=== PATIENT | female | born 1965 | race Caucasian/White ===

== ENCOUNTER → 2016-06-07 | Outpatient (CLI) | payer OTHER | END | disposition home or self-care (01) | LOC: PF 07:43 | PROVIDERS: ATTEND Surgery | DX: J44.9 Chronic obstructive pulmonary disease, unspecified (principal) | CPT/HCPCS: 94060 ==

== ENCOUNTER → 2016-08-18 | Outpatient (CLI) | payer OTHER ==
--- NOTE | 2016-08-18 15:25 | KCIC ---
PROCEDURE [facility]. HISTORY COPD exacerbation. Wheezing. This has been increasing over the past 6 months. Smoker. COMPARISON None at this facility. FINDINGS There is a nodule of the mid aspect measuring 13 millimeters. Nipple shadows project over both lung bases. Bilateral bronchitis is seen which may be acute or chronic in nature. Hyperinflation is seen consistent with COPD. No consolidative pneumonia is seen. No pleural effusion or pneumothorax is evident. The heart size, pulmonary vasculature, mediastinum and both genet are unremarkable. The osseous structures appear intact. IMPRESSION COPD. 13 millimeter lung nodule. Recommend comparison to any previous outside chest x-rays. If there are none available, then recommend a chest CT with IV contrast for further evaluation. Bilateral bronchitis. No consolidative pneumonia. Electronically signed by: Julio Benjamin MD (Aug 18, 2016 15:23:38)
== END | disposition home or self-care (01) ==
LOC: KCIC 12:23
PROVIDERS: ATTEND Nurse Practitioner Family
DX: J44.1 Chronic obstructive pulmonary disease with (acute) exacerbation (principal); R06.2 Wheezing; Z87.891 Personal history of nicotine dependence
CPT/HCPCS: 71020

== ENCOUNTER → 2016-08-30 | Outpatient (CLI) | payer OTHER ==
--- NOTE | 2016-08-30 10:58 | KCIC ---
PROCEDURE Chest CT without contrast. HISTORY Lung nodule, smoker for 38 years a 1 [id number], cough, shortness of air, COPD TECHNIQUE Noncontrast CT imaging was performed of the chest, multiplanar reconstruction images submitted. Exposure: One or more of the following individualized dose reduction techniques were utilized for this exam: 1. Automated exposure control. 2. Adjustment of the mA and/or kV according to patient size. 3. Use of iterative reconstruction technique. COMPARISON None other than chest radiograph August 18, 2016 FINDINGS Nodular opacity on chest radiograph corresponds with partially calcified nodule of the left upper lobe up to 1.2 cm transverse. There is small 0.3 cm right lower lobe nodule axial image 65 series 3. Slightly spiculated right upper lobe noncalcified nodule axial image 21 measures up to 0.6 centimeters. There is tiny right upper lobe nodule axial image 55 on the order of 0.2 cm. There is tiny 0.2 cm subpleural left lower lobe nodule axial image 54. There is no abnormal pericardial or pleural fluid, pneumothorax, lobar infiltrate. No significantly enlarged lymph nodes are identified of the chest. Largest pretracheal node measures 0.5 cm short axis dimension. There is somewhat hypodense left thyroid nodule estimated at 1.1 cm. There is some scattered atherosclerotic calcification of the normal caliber abdominal aorta. There is moderate to severe centrilobular emphysema. IMPRESSION 1. Radiographic findings correspond with partially calcified left upper lobe nodule. There are some other smaller noncalcified nodules including somewhat spiculated 0.6 centimeter right upper lobe nodule for which follow-up in 6-12 months is recommended. 2. There is centrilobular emphysema. 3. There is approximate 1.1 cm left thyroid nodule better characterized by ultrasound. Electronically signed by: Hung Randall MD (Aug 30, 2016 10:56:39)
== END | disposition home or self-care (01) ==
LOC: KCIC CT 10:06
PROVIDERS: ATTEND Internal Medicine Pulmonary Disease
DX: R91.1 Solitary pulmonary nodule (principal)
CPT/HCPCS: 71250

== ENCOUNTER 2018-01-22 12:14 | Inpatient (IN) | payer OTHER ==
[~2018-01-22] VITALS: Ht 154.9 cm; Wt 57.2 kg
--- NOTE | 2018-01-22 12:52 | PHYS DOC ---
Past Medical History Past Medical History: COPD Smoking: Cigarettes, 1 Pack Per Day Drug Use: None Adult General Chief Complaint Chief Complaint: RAPID HEART RATE HPI HPI Patient is a 52-year-old female who presents to the emergency department for evaluation. She states that on Monday, she felt her heart beating fast, and she checked her blood pressure and her heart rate was over 200. She states that her she would not really her blood pressure. She states she was having "heartburn" for a few hours on Monday, and she took some aspirin and all of her symptoms improved. She felt her heart beating fast again today, and took her blood pressure, and her blood pressure is a 169 systolic and her heart rate was in the 130s. She was not having any chest pain today. She did not feel dizzy or lightheaded at any time, and has not had any chest pain since Monday. She has not had any nausea, or vomiting. She did not feel short of breath at all, did not have any pleuritic chest pain. She has not had any nausea , or vomiting. There are no alleviating, or exacerbating factors to her symptoms. She does feel that her heart is beating slightly fast at this time, her heart rate is sinus rhythm in the low 100s on the monitor. Review of Systems Review of Systems Constitutional: Denies fever or chills [] Eyes: Denies change in visual acuity, redness, or eye pain [] HENT: Denies nasal congestion or sore throat [] Respiratory: Denies cough or shortness of breath [] Cardiovascular: No additional information not addressed in HPI [] GI: Denies abdominal pain, nausea, vomiting, bloody stools or diarrhea [] : Denies dysuria or hematuria [] Musculoskeletal: Denies back pain or joint pain [] Integument: Denies rash or skin lesions [] Neurologic: Denies headache, focal weakness or sensory changes, denies dizziness or lightheadedness.[] Endocrine: Denies polyuria or polydipsia [] Psychiatric: The patient denies she has been under a lot of stress, and denies anxiety. All other systems were reviewed and found to be within normal limits, except as documented in this note. Current Medications Current Medications Current Medications Medications (Trade) Dose Ordered Sig/Verónica Start Time Stop Time Status Last Admin Dose Admin Aspirin (Children'S Aspirin) 324 mg 1X ONCE 01/22/18 13:00 01/22/18 13:01 DC Labetalol HCl (Normodyne Iv Push) 20 mg 1X ONCE 01/22/18 13:00 01/22/18 13:01 DC 01/22/18 13:15 20 MG Allergies Allergies Allergies Coded Allergies Type Severity Reaction Last Updated Verified No Known Drug Allergies 01/22/18 No Physical Exam Physical Exam PHYSICAL EXAM: CONSTITUTIONAL: Well developed, well nourished HEAD: normocephalic, atraumatic EENT: PERRL, EOMI. Conjunctivae normal color, sclerae non-icteric; moist mucous membranes. NECK: Supple, non-tender; no meningismus. LUNGS: Lungs CTA, breathing even and unlabored. Normal air movement. HEART: Regular rate and rhythm, no murmur CHEST: No deformity; non-tender ABDOMEN: The abdomen is soft, and non-tender, no masses or bruits. EXTREM: Normal ROM; no deformity, no calf tenderness. Normal pulses palpable in all extremities. There is no pedal edema. SKIN: No rash; no diaphoresis NEURO: Alert; normal speech and cognition; CN's grossly intact; strength grossly intact without focal deficit. BACK: No CVA TTP. Current Patient Data Vital Signs Vital Signs Date Time Temp Pulse Resp B/P (MAP) Pulse Ox O2 Delivery O2 Flow Rate FiO2 01/22/18 13:15 79 220/92 01/22/18 12:50 98.6 16 95 Room Air 98.6 Lab Values Laboratory Tests Test 01/22/18 12:45 01/22/18 13:35 White Blood Count 10.7 x10^3/uL (4.0-11.0) Red Blood Count 5.04 x10^6/uL (3.50-5.40) Hemoglobin 15.4 g/dL (12.0-15.5) Hematocrit 44.3 % (36.0-47.0) Mean Corpuscular Volume 88 fL (79-100) Mean Corpuscular Hemoglobin 31 pg (25-35) Mean Corpuscular Hemoglobin Concent 35 g/dL (31-37) Red Cell Distribution Width 13.2 % (11.5-14.5) Platelet Count 365 x10^3/uL (140-400) Neutrophils (%) (Auto) 56 % (31-73) Lymphocytes (%) (Auto) 33 % (24-48) Monocytes (%) (Auto) 9 % (0-9) Eosinophils (%) (Auto) 2 % (0-3) Basophils (%) (Auto) 1 % (0-3) Neutrophils # (Auto) 6.0 x10^3uL (1.8-7.7) Lymphocytes # (Auto) 3.5 x10^3/uL (1.0-4.8) Monocytes # (Auto) 1.0 x10^3/uL (0.0-1.1) Eosinophils # (Auto) 0.2 x10^3/uL (0.0-0.7) Basophils # (Auto) 0.1 x10^3/uL (0.0-0.2) Sodium Level 135 mmol/L (136-145) L Potassium Level 3.7 mmol/L (3.5-5.1) Chloride Level 98 mmol/L (98-107) Carbon Dioxide Level 29 mmol/L (21-32) Anion Gap 8 (6-14) Blood Urea Nitrogen 24 mg/dL (7-20) H Creatinine 0.6 mg/dL (0.6-1.0) Estimated GFR (Cockcroft-Gault) 104.2 BUN/Creatinine Ratio 40 (6-20) H Glucose Level 127 mg/dL (70-99) H Calcium Level 10.0 mg/dL (8.5-10.1) Magnesium Level 1.2 mg/dL (1.8-2.4) L Total Bilirubin 0.2 mg/dL (0.2-1.0) Aspartate Amino Transferase (AST) 21 U/L (15-37) Alanine Aminotransferase (ALT) 38 U/L (14-59) Alkaline Phosphatase 95 U/L (46-116) Creatine Kinase 80 U/L (26-192) Creatine Kinase MB (Mass) 0.8 ng/mL (0.0-3.6) Creatine Kinase MB Relative Index 1.0 % (0-4) Troponin I Quantitative < 0.017 ng/mL (0.000-0.055) [id number]-Jlg-[id number]-Type Natriuretic Peptide 135 pg/mL (0-124) H Total Protein 8.0 g/dL (6.4-8.2) Albumin 4.2 g/dL (3.4-5.0) Albumin/Globulin Ratio 1.1 (1.0-1.7) Thyroid Stimulating Hormone (TSH) 1.681 uIU/mL (0.358-3.74) Free Thyroxine 0.98 ng/dL (0.76-1.46) Urine Opiates Screen Neg (NEG) Urine Methadone Screen Neg (NEG) Urine Barbiturates Neg (NEG) Urine Phencyclidine Screen Neg (NEG) Urine Amphetamine/Methamphetamine Neg (NEG) Urine Benzodiazepines Screen Neg (NEG) Urine Cocaine Screen Neg (NEG) Urine Cannabinoids Screen Neg (NEG) Urine Ethyl Alcohol Neg (NEG) Laboratory Tests 01/22/18 12:45 Laboratory Tests 01/22/18 12:45 EKG EKG [Normal sinus rhythm at a rate of 107 beats for minute, normal axis, normal intervals, nonspecific ST/T changes inferiorly/laterally.] Radiology/Procedures Radiology/Procedures [PROCEDURE: PORTABLE CHEST 1V PORTABLE CHEST 1V dated 01/22/2018 1:18 PM. Comparison: 03/31/2017 Clinical Indication: COUGH,SOB, S/P CHEST PAIN X1 WEEK. Findings: Single upright portable exam performed. Heart and mediastinal contours are stable. Lungs are somewhat hyperinflated but otherwise clear. No consolidation or pleural effusion. Calcified granuloma left mid zone, unchanged. No pneumothorax. Impression: 1. No acute radiographic abnormality. 2. Findings consistent with COPD. ] Course & Med Decision Making Course & Med Decision Making Pertinent Labs and Imaging studies reviewed. (See chart for details) [2:05 PM: The patient's condition remained stable. She is feeling better and is a symptomatically.. She was not given] aspirin in the emergency department and she stated that she took 5 baby aspirin prior to arrival. I do have concern about her reported chest discomfort on Monday, along with the abnormal EKG. I do believe she warrants further cardiac evaluation will be admitted for such. Heart rate is currently in the 80s and her blood pressure is 130 systolic. Dragon Disclaimer Dragon Disclaimer This electronic medical record was generated, in whole or in part, using a voice recognition dictation system. Departure Departure Impression: Primary Impression: Chest pain Additional Impressions: Abnormal EKG Palpitations Disposition: ADMITTED INPATIENT Admitting Physician: Mackenzie Mary Condition: STABLE Referrals: EARLENE RHODES (PCP) Problem Qualifiers TRU MARVIN MD Jan 22, 2018 12:52
[2018-01-22] MEDS ORDERED: LABETALOL 20 MG/4 ML DISP.SYRIN. IVP ONE (13:00)
[2018-01-22] MEDS ORDERED: ASPIRIN CHEWABLE 81 MG TABLET. PO ONE (13:00)
[2018-01-22 13:04] LABS: BASO # 0.1 x10^3/uL (0.0-0.2); BASO % 1 % (0-3); EOS # 0.2 x10^3/uL (0.0-0.7); EOS % 2 % (0-3); HEMATOCRIT 44.3 % (36.0-47.0); HEMOGLOBIN 15.4 g/dL (12.0-15.5); LYMPH # 3.5 x10^3/uL (1.0-4.8); LYMPH % 33 % (24-48); MEAN CORPUSCULAR HEMOGLOBIN 31 pg (25-35); MEAN CORPUSCULAR HGB CONC 35 g/dL (31-37); MEAN CORPUSCULAR VOLUME 88 fL (79-100); MONO % 9 % (0-9); NEUT % 56 % (31-73); PLATELET COUNT 365 x10^3/uL (140-400); RED BLOOD COUNT 5.04 x10^6/uL (3.50-5.40); RED CELL DISTRIBUTION WIDTH 13.2 % (11.5-14.5); WHITE BLOOD COUNT 10.7 x10^3/uL (4.0-11.0)
--- NOTE | 2018-01-22 13:13 | EKG ---
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
[2018-01-22 13:14] LABS: CREATININE 0.6 mg/dL (0.6-1.0); GFR 104.2; POTASSIUM 3.7 mmol/L (3.5-5.1)
[2018-01-22 13:20] LABS: ALBUMIN 4.2 g/dL (3.4-5.0); ALBUMIN/GLOBULIN RATIO 1.1 (1.0-1.7); MAGNESIUM 1.2 mg/dL (1.8-2.4); TOTAL BILIRUBIN 0.2 mg/dL (0.2-1.0)
[2018-01-22 13:25] LABS: FREE T4 0.98 ng/dL (0.76-1.46); THYROID STIM HORMONE (TSH) 1.681 uIU/mL (0.358-3.74)
--- NOTE | 2018-01-22 13:38 | RAD ---
PORTABLE CHEST 1V dated 01/22/2018 1:18 PM. Comparison: 03/31/2017 Clinical Indication: COUGH,SOB, S/P CHEST PAIN X1 WEEK. Findings: Single upright portable exam performed. Heart and mediastinal contours are stable. Lungs are somewhat hyperinflated but otherwise clear. No consolidation or pleural effusion. Calcified granuloma left mid zone, unchanged. No pneumothorax. Impression: 1. No acute radiographic abnormality. 2. Findings consistent with COPD. Electronically signed by: Zachary Thorpe MD (01/22/2018 1:36 PM) [id number]
[2018-01-22 13:51] LABS: BARBITURATES NEG (NEG); BENZODIAZEPINES NEG (NEG); CANNABINOIDS NEG (NEG); COCAINE NEG (NEG); METHADONE NEG (NEG); OPIATES NEG (NEG); PHENCYCLIDINE NEG (NEG)
[2018-01-22 13:53] LABS: AMPHETAMINE/METHAMPHETAMINE NEG (NEG)
[2018-01-22 16:00] VITALS: BP 143/60
[2018-01-22] MEDS ORDERED: BUDE10.2 IH (16:58)
[2018-01-22] MEDS ORDERED: PROAIR HFA8.5 GM INH (16:58)
[2018-01-22] MEDS ORDERED: IPRA0.2S5 NEB (16:58)
[2018-01-22] MEDS ORDERED: ALBUTEROL SULFATE 2.5 MG/3 ML NEBU. NEB PRN (17:15)
[2018-01-22] MEDS ORDERED: AZITHROMYCIN 250 MG TABLET. PO ONE (17:30)
[2018-01-22 19:00] VITALS: BP 115/56
[2018-01-22] MEDS: BUDESONIDE 0.5 MG/2 ML NEBU. NEB SCH (19:55)
[2018-01-22] MEDS: IPRATRPIUM/ALBUTEROL 0.5/2.5MG 3 ML NEBU. NEB SCH (19:55)
[2018-01-22] MEDS ORDERED: IPRATROPIUM BROMIDE 0.5 MG/2.5 ML NEBU. NEB SCH (20:00)
[2018-01-22] MEDS: methylPREDNISolone SOD SUCC PF 40 MG/ML VIAL. IV SCH (20:10)
[2018-01-22] MEDS: guaiFENesin DM 600/30MG 1 TAB TAB.ER.12H PO SCH (20:10)
--- NOTE | 2018-01-22 20:26 | HP ---
ADMIT DATE: 01/22/2018 CHIEF COMPLAINT: Rapid heart rate, palpitations, chest pain, cough. HISTORY OF PRESENT ILLNESS: The patient is a pleasant 52-year-old female who has a previous history of arrhythmia. She apparently sees Dr. Mcclain for this. She saw him back in June. Yesterday, she had some palpitations, her heart was racing. Today she had it again. She presented to the ER for evaluation. In the ER, it seemed like she also has some bronchitis. She is coughing a lot. She smokes heavily. She has associated nausea. I have discussed the case with the ER physician and the nurses. We are going to go ahead and admit the patient and consult Pulmonary and Cardiology. PAST MEDICAL HISTORY: Tobacco abuse, COPD, previous tachycardia, arrhythmias. ALLERGIES: None. FAMILY HISTORY: Diabetes. SOCIAL HISTORY: She smokes heavily. She drinks socially. No drugs. MEDICATIONS: Reviewed, please refer to the MRAD. REVIEW OF SYSTEMS: GENERAL: No history of weight change, weakness or fevers. SKIN: No bruising, hair changes or rashes. EYES: No blurred, double or loss of vision. NOSE AND THROAT: No history of nosebleeds, hoarseness or sore throat. HEART: She complains of chest pain and palpitations. LUNGS: She complains of a cough. GASTROINTESTINAL: Denies changes in appetite, nausea, vomiting, diarrhea or constipation. GENITOURINARY: No history of frequency, urgency, hesitancy or nocturia. NEUROLOGIC: Denies history of numbness, tingling, tremor or weakness. PSYCHIATRIC: No history of panic, anxiety or depression. ENDOCRINE: No history of heat or cold intolerance, polyuria or polydipsia. EXTREMITIES: Denies muscle weakness, joint pain, pain on walking or stiffness. PHYSICAL EXAMINATION: VITAL SIGNS: Temperature afebrile, pulse 90, respirations 20, blood pressure 143/60, O2 sat 91% on 2 liters. GENERAL: She is alert, cooperative, coughing. HEART: Distant S1, S2. LUNGS: Coarse. ABDOMEN: Soft. EXTREMITIES: Trace edema. SKIN: No rashes. ENDOCRINE: No thyromegaly. LYMPHATICS: No cervical nodes. HEMATOPOIETIC: No bruising. LABORATORY DATA: Hematology is normal. Electrolytes are normal other than a sodium of 135 and a BUN of 24. Her glucose is 127. Troponin is 0. BNP a little high at 135. TSH normal at 1.68. Chest x-ray: COPD. ASSESSMENT AND PLAN: Probable recurrent arrhythmias in a middle-aged female who has probable bronchitis too. The patient is being admitted. We will consult Cardiology, consult Pulmonary. IV steroids, breathing treatments, oxygen and empiric antibiotics. Serial enzymes, serial EKGs, cardiac monitoring, home meds. I told her to quit smoking. DUNIA NOLAND DO DR: MIGUEL ANGEL/emelyn JOB#: [id number] / [id number]
[2018-01-22 23:00] VITALS: BP 98/57
[2018-01-23 03:00] VITALS: BP 98/60
[2018-01-23] MEDS ORDERED: PROMETH/CODEINE 6.25/10MG 5 ML SYRUP. PO PRN (06:15)
[2018-01-23 07:00] VITALS: BP 116/66
[2018-01-23] MEDS: IPRATRPIUM/ALBUTEROL 0.5/2.5MG 3 ML NEBU. NEB SCH ×4 (07:33→19:52)
[2018-01-23] MEDS: BUDESONIDE 0.5 MG/2 ML NEBU. NEB SCH ×2 (07:33→19:52)
[2018-01-23] MEDS: methylPREDNISolone SOD SUCC PF 40 MG/ML VIAL. IV SCH (08:58)
[2018-01-23] MEDS: guaiFENesin DM 600/30MG 1 TAB TAB.ER.12H PO SCH (08:58)
[2018-01-23] MEDS ORDERED: AZITHROMYCIN 250 MG TABLET. PO SCH (09:00)
[2018-01-23] MEDS ORDERED: ACETAMINOPHEN 500 MG TABLET PO PRN (09:00)
[2018-01-23] MEDS ORDERED: IBUPROFEN 400 MG TABLET. PO PRN (09:00)
[2018-01-23] MEDS ORDERED: ACETAMINOPHEN/CODEINE 300/30MG TABLET. PO PRN (09:00)
[2018-01-23] MEDS ORDERED: ONDANSETRON ODT 4 MG TAB.RAPDIS. PO PRN (09:00)
[2018-01-23] MEDS ORDERED: ONDANSETRON PF 4 MG/2 ML VIAL. IV PRN (09:00)
--- NOTE | 2018-01-23 09:32 | PDOC2 ---
CARDIAC CONSULT DATE OF CONSULT Date of Consult DATE: 01/23/18 TIME: : REASON FOR CONSULT Reason for Consult: CP REFERRING PHYSICIAN Referring Physician: Jone SOURCE Source: Chart review, Patient HISTORY OF PRESENT ILLNESS HISTORY OF PRESENT ILLNESS 52 year old female admitted through the ER for palpitations and "heartburn." Noted a fast heart rate on Monday and not "feeling right." Developed "heartburn" after eating pork tacos on Monday. She took aspirin and symptoms gone an hour later. No symptoms on Monday. Had palpitations after taking the trash out on Monday Reported history of PSVT but event monitor done without dysrhythmias. Current telemetry with ST only. EKG and troponin levels not consistent with AMI. CXR with COPD and currently with vigorous cough productive tenacious white sputum. Denies fevers/chills. Mg level 1.2 with normal K. Reason for Visit: palpitations, reflux PAST MEDICAL HISTORY Cardiovascular: HTN, Other (? PSVT - no documentation in this practice) Pulmonary: COPD CENTRAL NERVOUS SYSTEM: Other (none) GI: No pertinent hx Heme/Onc: No pertinent hx Hepatobiliary: No pertinent hx Psych: No pertinent hx Musculoskeletal: No pain Rheumatologic: No pertinent hx Infectious disease: No pertinent hx ENT: No pertinent hx Renal/: No pertinent hx Endocrine: No pertinent hx, Hyperthyroidism PAST SURGICAL HISTORY Past Surgical History: Hysterectomy FAMILY HISTORY Family History: Cancer (breast, lung, throat), Hypertension, Stroke, Other ( COPD) SOCIAL HISTORY Smoke: <1 pack per day (3/4 ppd; usually a ppd) ALCOHOL: none Drugs: None Lives: with Family CURRENT MEDICATIONS CURRENT MEDICATIONS Current Medications Medications (Trade) Dose Ordered Sig/Verónica Route PRN Reason Start Time Stop Time Status Last Admin Dose Admin Labetalol HCl (Normodyne Iv Push) 20 mg 1X ONCE IVP 01/22/18 13:00 01/22/18 13:01 DC 01/22/18 13:15 Azithromycin (Zithromax) 500 mg 1X ONCE PO 01/22/18 17:30 01/22/18 17:31 DC 01/22/18 17:59 Azithromycin (Zithromax) 250 mg DAILY PO 01/23/18 09:00 01/26/18 10:00 01/23/18 08:58 Budesonide (Pulmicort) 0.5 mg RTBID NEB 8/27/18 20:00 01/23/18 07:33 Guaifenesin (MUCINEX ER with DM) 1 tab BID PO 01/22/18 21:00 01/23/18 08:58 Methylprednisolone Sodium Succinate (SOLU-Medrol 40MG VIAL) 30 mg DAILY IV 01/22/18 20:00 01/23/18 08:58 Albuterol/ Ipratropium (Duoneb) 3 ml RTQID NEB 01/22/18 20:00 01/23/18 07:33 Promethazine HCl/ Codeine (Phenergan With Codeine) 5 ml PRN Q4HRS PRN PO COUGH 01/23/18 06:15 01/23/18 06:24 ALLERGIES ALLERGIES: Coded Allergies: No Known Drug Allergies (Unverified , 01/22/18) ROS Review of System 14 point review with pertinent positives in HPI PHYSICAL EXAM General: Alert, Oriented X3, Cooperative HEENT: Atraumatic Lungs: Other (coarse) Heart: Normal S1, Normal S2, No murmurs Abdomen: Soft Extremities: No edema, Normal pulses Skin: No rashes Neuro: Normal speech Psych/Mental Status: Mental status NL, Mood NL MUSCULOSKELETAL: No deformity VITALS VITALS Vital Signs Date Time Temp Pulse Resp B/P (MAP) Pulse Ox O2 Delivery O2 Flow Rate FiO2 01/23/18 07:33 97 Nasal Cannula 2.0 01/23/18 07:00 97.9 86 20 116/66 (83) 97.9 LABS Lab: Laboratory Tests Test 01/22/18 12:45 01/22/18 13:35 01/22/18 17:15 01/22/18 20:15 White Blood Count 10.7 x10^3/uL (4.0-11.0) Red Blood Count 5.04 x10^6/uL (3.50-5.40) Hemoglobin 15.4 g/dL (12.0-15.5) Hematocrit 44.3 % (36.0-47.0) Mean Corpuscular Volume 88 fL (79-100) Mean Corpuscular Hemoglobin 31 pg (25-35) Mean Corpuscular Hemoglobin Concent 35 g/dL (31-37) Red Cell Distribution Width 13.2 % (11.5-14.5) Platelet Count 365 x10^3/uL (140-400) Neutrophils (%) (Auto) 56 % (31-73) Lymphocytes (%) (Auto) 33 % (24-48) Monocytes (%) (Auto) 9 % (0-9) Eosinophils (%) (Auto) 2 % (0-3) Basophils (%) (Auto) 1 % (0-3) Neutrophils # (Auto) 6.0 x10^3uL (1.8-7.7) Lymphocytes # (Auto) 3.5 x10^3/uL (1.0-4.8) Monocytes # (Auto) 1.0 x10^3/uL (0.0-1.1) Eosinophils # (Auto) 0.2 x10^3/uL (0.0-0.7) Basophils # (Auto) 0.1 x10^3/uL (0.0-0.2) Sodium Level 135 mmol/L (136-145) Potassium Level 3.7 mmol/L (3.5-5.1) Chloride Level 98 mmol/L (98-107) Carbon Dioxide Level 29 mmol/L (21-32) Anion Gap 8 (6-14) Blood Urea Nitrogen 24 mg/dL (7-20) Creatinine 0.6 mg/dL (0.6-1.0) Estimated GFR (Cockcroft-Gault) 104.2 BUN/Creatinine Ratio 40 (6-20) Glucose Level 127 mg/dL (70-99) Calcium Level 10.0 mg/dL (8.5-10.1) Magnesium Level 1.2 mg/dL (1.8-2.4) Total Bilirubin 0.2 mg/dL (0.2-1.0) Aspartate Amino Transf (AST/SGOT) 21 U/L (15-37) Alanine Aminotransferase (ALT/SGPT) 38 U/L (14-59) Alkaline Phosphatase 95 U/L (46-116) Creatine Kinase 80 U/L (26-192) Creatine Kinase MB (Mass) 0.8 ng/mL (0.0-3.6) Creatine Kinase MB Relative Index 1.0 % (0-4) Troponin I Quantitative < 0.017 ng/mL (0.000-0.055) < 0.017 ng/mL (0.000-0.055) < 0.017 ng/mL (0.000-0.055) BY-Dij-L-Type Natriuretic Peptide 135 pg/mL (0-124) Total Protein 8.0 g/dL (6.4-8.2) Albumin 4.2 g/dL (3.4-5.0) Albumin/Globulin Ratio 1.1 (1.0-1.7) Thyroid Stimulating Hormone (TSH) 1.681 uIU/mL (0.358-3.74) Free Thyroxine 0.98 ng/dL (0.76-1.46) Urine Opiates Screen Neg (NEG) Urine Methadone Screen Neg (NEG) Urine Barbiturates Neg (NEG) Urine Phencyclidine Screen Neg (NEG) Urine Amphetamine/Methamphetamine Neg (NEG) Urine Benzodiazepines Screen Neg (NEG) Urine Cocaine Screen Neg (NEG) Urine Cannabinoids Screen Neg (NEG) Urine Ethyl Alcohol Neg (NEG) IMAGES IMAGES 03/2017: CTA chest: 1. Stable appearance of a 6 mm irregular nodule in the right lung apex. There is a new 5 mm groundglass opacity in the right upper lobe which may be infectious/inflammatory. Recommend additional follow-up chest CT in 6-12 months to ensure stability. 2. Mild centrilobular pulmonary emphysema with mild bronchial wall thickening compatible with chronic bronchitis. 3. Stable appearance of a 1.2 cm inferior left thyroid lobe nodule. Sonographic evaluation may be of benefit if not already performed. 01/22/2018: CXR: 1. No acute radiographic abnormality. 2. Findings consistent with COPD. EKG EKG no acute changes ASSESSMENT/PLAN ASSESSMENT/PLAN 1. chest pain --EKG and troponin levels not consistent with AMI --symptoms occurred after eating; ? reflux ----however, multiple risk factors for ischemic heart disease - TTE to evaluate LVEF now; MPI as outpatient when cough is resolved and patient can lie flat --check FLP 2. palpitations --hx of PSVT, though not documented in this practice --EKG and tele are ST --? related to hypomagnesemia -- will replace and recheck in a.m --consider ILR for further evaluation of palpitations 3. AECOPD/pulm nodules --pulm consult pending 4. HTN --continue oral meds CECY CARCAMO RN [facility] Jan 23, 2018 09:32
[2018-01-23] MEDS ORDERED: MAGNESIUM SULFATE 4GM 100 ML IV ONE (10:00)
[2018-01-23] MEDS ORDERED: NICOTINE 21MG PATCH. TD PRN (10:30)
--- NOTE | 2018-01-23 10:30 | PDOC ---
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, for echocardiogram-we'll did not tolerate an MPI given lung status Still continues to smoke Chest x-ray basically shows COPD findings PLAN: Echo Add some nebs and scheduled cough med Darrick patch Smoking cessation counselling done today 1;1 Await pulmo rounds Supprotive [facility]FP meds I have reconciled Vitals Vitals Vital Signs Date Time Temp Pulse Resp B/P (MAP) Pulse Ox O2 Delivery O2 Flow Rate FiO2 01/23/18 07:33 97 Nasal Cannula 2.0 01/23/18 07:00 97.9 86 20 116/66 (83) 97.9 Physical Exam General: Alert, Oriented X3, Cooperative, mild distress Heart: Regular rate, Normal S1, Normal S2 Lungs: Wheezing, Other (coughing in between phrases, decreased breath sounds on bases) Abdomen: Normal bowel sounds, Soft, No tenderness Extremities: No clubbing, No cyanosis, No edema Skin: No rashes, No breakdown, No significant lesion Labs LABS Laboratory Tests Test 01/22/18 12:45 01/22/18 13:35 01/22/18 17:15 01/22/18 20:15 White Blood Count 10.7 x10^3/uL (4.0-11.0) Red Blood Count 5.04 x10^6/uL (3.50-5.40) Hemoglobin 15.4 g/dL (12.0-15.5) Hematocrit 44.3 % (36.0-47.0) Mean Corpuscular Volume 88 fL (79-100) Mean Corpuscular Hemoglobin 31 pg (25-35) Mean Corpuscular Hemoglobin Concent 35 g/dL (31-37) Red Cell Distribution Width 13.2 % (11.5-14.5) Platelet Count 365 x10^3/uL (140-400) Neutrophils (%) (Auto) 56 % (31-73) Lymphocytes (%) (Auto) 33 % (24-48) Monocytes (%) (Auto) 9 % (0-9) Eosinophils (%) (Auto) 2 % (0-3) Basophils (%) (Auto) 1 % (0-3) Neutrophils # (Auto) 6.0 x10^3uL (1.8-7.7) Lymphocytes # (Auto) 3.5 x10^3/uL (1.0-4.8) Monocytes # (Auto) 1.0 x10^3/uL (0.0-1.1) Eosinophils # (Auto) 0.2 x10^3/uL (0.0-0.7) Basophils # (Auto) 0.1 x10^3/uL (0.0-0.2) Sodium Level 135 mmol/L (136-145) Potassium Level 3.7 mmol/L (3.5-5.1) Chloride Level 98 mmol/L (98-107) Carbon Dioxide Level 29 mmol/L (21-32) Anion Gap 8 (6-14) Blood Urea Nitrogen 24 mg/dL (7-20) Creatinine 0.6 mg/dL (0.6-1.0) Estimated GFR (Cockcroft-Gault) 104.2 BUN/Creatinine Ratio 40 (6-20) Glucose Level 127 mg/dL (70-99) Calcium Level 10.0 mg/dL (8.5-10.1) Magnesium Level 1.2 mg/dL (1.8-2.4) Total Bilirubin 0.2 mg/dL (0.2-1.0) Aspartate Amino Transf (AST/SGOT) 21 U/L (15-37) Alanine Aminotransferase (ALT/SGPT) 38 U/L (14-59) Alkaline Phosphatase 95 U/L (46-116) Creatine Kinase 80 U/L (26-192) Creatine Kinase MB (Mass) 0.8 ng/mL (0.0-3.6) Creatine Kinase MB Relative Index 1.0 % (0-4) Troponin I Quantitative < 0.017 ng/mL (0.000-0.055) < 0.017 ng/mL (0.000-0.055) < 0.017 ng/mL (0.000-0.055) MF-Dpd-G-Type Natriuretic Peptide 135 pg/mL (0-124) Total Protein 8.0 g/dL (6.4-8.2) Albumin 4.2 g/dL (3.4-5.0) Albumin/Globulin Ratio 1.1 (1.0-1.7) Thyroid Stimulating Hormone (TSH) 1.681 uIU/mL (0.358-3.74) Free Thyroxine 0.98 ng/dL (0.76-1.46) Urine Opiates Screen Neg (NEG) Urine Methadone Screen Neg (NEG) Urine Barbiturates Neg (NEG) Urine Phencyclidine Screen Neg (NEG) Urine Amphetamine/Methamphetamine Neg (NEG) Urine Benzodiazepines Screen Neg (NEG) Urine Cocaine Screen Neg (NEG) Urine Cannabinoids Screen Neg (NEG) Urine Ethyl Alcohol Neg (NEG) Review of Systems Review of Systems Cough, SOA, no chest pain, no abdominal pain, no fevers, no psych issues Assessment and Plan Assessmemt and Plan Problems Medical Problems: (1) Abnormal EKG Status: Acute (2) Chest pain Status: Acute (3) Palpitations Status: Acute Comment Review of Relevant I have reviewed the following items mayra (where applicable) has been applied. Labs Laboratory Tests Test 01/22/18 12:45 01/22/18 13:35 01/22/18 17:15 01/22/18 20:15 White Blood Count 10.7 x10^3/uL (4.0-11.0) Red Blood Count 5.04 x10^6/uL (3.50-5.40) Hemoglobin 15.4 g/dL (12.0-15.5) Hematocrit 44.3 % (36.0-47.0) Mean Corpuscular Volume 88 fL (79-100) Mean Corpuscular Hemoglobin 31 pg (25-35) Mean Corpuscular Hemoglobin Concent 35 g/dL (31-37) Red Cell Distribution Width 13.2 % (11.5-14.5) Platelet Count 365 x10^3/uL (140-400) Neutrophils (%) (Auto) 56 % (31-73) Lymphocytes (%) (Auto) 33 % (24-48) Monocytes (%) (Auto) 9 % (0-9) Eosinophils (%) (Auto) 2 % (0-3) Basophils (%) (Auto) 1 % (0-3) Neutrophils # (Auto) 6.0 x10^3uL (1.8-7.7) Lymphocytes # (Auto) 3.5 x10^3/uL (1.0-4.8) Monocytes # (Auto) 1.0 x10^3/uL (0.0-1.1) Eosinophils # (Auto) 0.2 x10^3/uL (0.0-0.7) Basophils # (Auto) 0.1 x10^3/uL (0.0-0.2) Sodium Level 135 mmol/L (136-145) Potassium Level 3.7 mmol/L (3.5-5.1) Chloride Level 98 mmol/L (98-107) Carbon Dioxide Level 29 mmol/L (21-32) Anion Gap 8 (6-14) Blood Urea Nitrogen 24 mg/dL (7-20) Creatinine 0.6 mg/dL (0.6-1.0) Estimated GFR (Cockcroft-Gault) 104.2 BUN/Creatinine Ratio 40 (6-20) Glucose Level 127 mg/dL (70-99) Calcium Level 10.0 mg/dL (8.5-10.1) Magnesium Level 1.2 mg/dL (1.8-2.4) Total Bilirubin 0.2 mg/dL (0.2-1.0) Aspartate Amino Transf (AST/SGOT) 21 U/L (15-37) Alanine Aminotransferase (ALT/SGPT) 38 U/L (14-59) Alkaline Phosphatase 95 U/L (46-116) Creatine Kinase 80 U/L (26-192) Creatine Kinase MB (Mass) 0.8 ng/mL (0.0-3.6) Creatine Kinase MB Relative Index 1.0 % (0-4) Troponin I Quantitative < 0.017 ng/mL (0.000-0.055) < 0.017 ng/mL (0.000-0.055) < 0.017 ng/mL (0.000-0.055) MK-Rke-H-Type Natriuretic Peptide 135 pg/mL (0-124) Total Protein 8.0 g/dL (6.4-8.2) Albumin 4.2 g/dL (3.4-5.0) Albumin/Globulin Ratio 1.1 (1.0-1.7) Thyroid Stimulating Hormone (TSH) 1.681 uIU/mL (0.358-3.74) Free Thyroxine 0.98 ng/dL (0.76-1.46) Urine Opiates Screen Neg (NEG) Urine Methadone Screen Neg (NEG) Urine Barbiturates Neg (NEG) Urine Phencyclidine Screen Neg (NEG) Urine Amphetamine/Methamphetamine Neg (NEG) Urine Benzodiazepines Screen Neg (NEG) Urine Cocaine Screen Neg (NEG) Urine Cannabinoids Screen Neg (NEG) Urine Ethyl Alcohol Neg (NEG) Laboratory Tests Test 01/22/18 12:45 01/22/18 13:35 01/22/18 17:15 01/22/18 20:15 White Blood Count 10.7 x10^3/uL (4.0-11.0) Red Blood Count 5.04 x10^6/uL (3.50-5.40) Hemoglobin 15.4 g/dL (12.0-15.5) Hematocrit 44.3 % (36.0-47.0) Mean Corpuscular Volume 88 fL (79-100) Mean Corpuscular Hemoglobin 31 pg (25-35) Mean Corpuscular Hemoglobin Concent 35 g/dL (31-37) Red Cell Distribution Width 13.2 % (11.5-14.5) Platelet Count 365 x10^3/uL (140-400) Neutrophils (%) (Auto) 56 % (31-73) Lymphocytes (%) (Auto) 33 % (24-48) Monocytes (%) (Auto) 9 % (0-9) Eosinophils (%) (Auto) 2 % (0-3) Basophils (%) (Auto) 1 % (0-3) Neutrophils # (Auto) 6.0 x10^3uL (1.8-7.7) Lymphocytes # (Auto) 3.5 x10^3/uL (1.0-4.8) Monocytes # (Auto) 1.0 x10^3/uL (0.0-1.1) Eosinophils # (Auto) 0.2 x10^3/uL (0.0-0.7) Basophils # (Auto) 0.1 x10^3/uL (0.0-0.2) Sodium Level 135 mmol/L (136-145) Potassium Level 3.7 mmol/L (3.5-5.1) Chloride Level 98 mmol/L (98-107) Carbon Dioxide Level 29 mmol/L (21-32) Anion Gap 8 (6-14) Blood Urea Nitrogen 24 mg/dL (7-20) Creatinine 0.6 mg/dL (0.6-1.0) Estimated GFR (Cockcroft-Gault) 104.2 BUN/Creatinine Ratio 40 (6-20) Glucose Level 127 mg/dL (70-99) Calcium Level 10.0 mg/dL (8.5-10.1) Magnesium Level 1.2 mg/dL (1.8-2.4) Total Bilirubin 0.2 mg/dL (0.2-1.0) Aspartate Amino Transf (AST/SGOT) 21 U/L (15-37) Alanine Aminotransferase (ALT/SGPT) 38 U/L (14-59) Alkaline Phosphatase 95 U/L (46-116) Creatine Kinase 80 U/L (26-192) Creatine Kinase MB (Mass) 0.8 ng/mL (0.0-3.6) Creatine Kinase MB Relative Index 1.0 % (0-4) Troponin I Quantitative < 0.017 ng/mL (0.000-0.055) < 0.017 ng/mL (0.000-0.055) < 0.017 ng/mL (0.000-0.055) WX-Qyw-U-Type Natriuretic Peptide 135 pg/mL (0-124) Total Protein 8.0 g/dL (6.4-8.2) Albumin 4.2 g/dL (3.4-5.0) Albumin/Globulin Ratio 1.1 (1.0-1.7) Thyroid Stimulating Hormone (TSH) 1.681 uIU/mL (0.358-3.74) Free Thyroxine 0.98 ng/dL (0.76-1.46) Urine Opiates Screen Neg (NEG) Urine Methadone Screen Neg (NEG) Urine Barbiturates Neg (NEG) Urine Phencyclidine Screen Neg (NEG) Urine Amphetamine/Methamphetamine Neg (NEG) Urine Benzodiazepines Screen Neg (NEG) Urine Cocaine Screen Neg (NEG) Urine Cannabinoids Screen Neg (NEG) Urine Ethyl Alcohol Neg (NEG) Medications Current Medications Aspirin (Children'S Aspirin) 324 mg 1X ONCE PO ; Start 01/22/18 at 13:00; Stop 01/22/18 at 13:01; Status DC Labetalol HCl (Normodyne Iv Push) 20 mg 1X ONCE IVP Last administered on at 13:15; Start 01/22/18 at 13:00; Stop 01/22/18 at 13:01; Status DC Azithromycin (Zithromax) 500 mg 1X ONCE PO Last administered on 01/22/18at 17: 59; Start 01/22/18 at 17:30; Stop 01/22/18 at 17:31; Status DC Azithromycin (Zithromax) 250 mg DAILY PO Last administered on 01/23/18at 08:58; Start 01/23/18 at 09:00; Stop 01/26/18 at 10:00 Ipratropium [place] (Atrovent) 1 mg RTQID NEB ; Start 01/22/18 at 20:00; Stop at 20:00; Status DC Albuterol Sulfate (Ventolin Neb Soln) 2.5 mg PRN Q6HRS PRN NEB SHORTNESS OF BREATH; Start 01/22/18 at 17:15 Budesonide (Pulmicort) 0.5 mg RTBID NEB Last administered on 01/23/18at 07:33; Start 01/22/18 at 20:00 Guaifenesin (MUCINEX ER with DM) 1 tab BID PO Last administered on 01/23/18at 08 :58; Start 01/22/18 at 21:00 Methylprednisolone Sodium Succinate (SOLU-Medrol 40MG VIAL) 30 mg DAILY IV Last administered on 01/23/18at 08:58; Start 01/22/18 at 20:00 Albuterol/ Ipratropium (Duoneb) 3 ml RTQID NEB Last administered on 01/23/18at 07:33; Start 01/22/18 at 20:00 Promethazine HCl/ Codeine (Phenergan With Codeine) 5 ml PRN Q4HRS PRN PO COUGH Last administered on 01/23/18at 06:24; Start 01/23/18 at 06:15 Ondansetron HCl (Zofran) 4 mg PRN Q6HRS PRN IV NAUSEA/VOMITING; Start 01/23/18 at 09:00 Ondansetron HCl (Zofran Odt) 4 mg PRN Q6HRS PRN PO NAUSEA/VOMITING; Start 01/23 at 09:00 Acetaminophen (Tylenol) 500 mg PRN Q6HRS PRN PO HEADACHE / TEMP; Start at 09:00 Acetaminophen/ Codeine Phosphate (Tylenol #3) 1 tab PRN Q6HRS PRN PO PAIN MILD ; Start 01/23/18 at 09:00 Ibuprofen (Motrin) 400 mg PRN Q6HRS PRN PO INFLAMMATION; Start 01/23/18 at 09: 00 Magnesium Sulfate/ Dextrose 100 ml @ 25 mls/hr 1X ONCE IV Last administered on 01/23/18at 10:04; Start 01/23/18 at 10:00; Stop 01/23/18 at 13:59 Active Scripts Active Reported Ipratropium [place] 0.2 Mg/1 Ml Solution 1 Vial NEB QID Proair Hfa Inhaler (Albuterol Sulfate) 8.5 Gm Hfa.aer.ad 1 Puff INH PRN Q6HRS PRN Symbicort 160-4.5 Mcg Inhaler (Budesonide/Formoterol Fumarate) 10.2 Gm Hfa.aer.ad 2 Puff IH BID Vitals/I & O Vital Sign - Last 24 Hours 01/22/18 01/22/18 01/22/18 01/22/18 12:50 13:00 13:15 14:00 Temp 98.6 98.6 Pulse 127 104 79 78 Resp 16 B/P (MAP) 200/96 (130) 161/80 (107) 220/92 131/70 (90) Pulse Ox 95 91 92 O2 Delivery Room Air Room Air 01/22/18 01/22/18 01/22/18 01/22/18 15:00 16:00 18:05 19:00 Temp 97.8 97.8 97.8 97.8 Pulse 78 91 84 Resp 16 20 16 B/P (MAP) 135/70 (91) 143/60 (87) 115/56 (75) Pulse Ox 92 91 92 O2 Delivery Room Air Nasal Cannula Nasal Cannula Room Air O2 Flow Rate 2.0 2.0 01/22/18 01/22/18 01/22/18 01/22/18 20:00 20:02 20:03 23:00 Temp 97.9 97.9 Pulse 81 Resp 15 B/P (MAP) 98/57 (71) Pulse Ox 97 97 96 O2 Delivery Nasal Cannula Nasal Cannula Nasal Cannula Nasal Cannula O2 Flow Rate 2.0 2.0 2.0 2.0 01/23/18 01/23/18 01/23/18 03:00 07:00 07:33 Temp 97.9 97.9 97.9 97.9 Pulse 78 86 Resp 16 20 B/P (MAP) 98/60 (73) 116/66 (83) Pulse Ox 91 95 97 O2 Delivery Room Air Nasal Cannula Nasal Cannula O2 Flow Rate 2.0 2.0 Intake and Output 01/22/18 01/22/18 01/23/18 15:00 23:00 07:00 Intake Total 1100 ml Output Total 200 ml 0 ml Balance 900 ml 0 ml FLAVIO RODRIGUEZ MD Jan 23, 2018 10:30
[2018-01-23 11:00] VITALS: BP 107/66
[2018-01-23 14:55] VITALS: BP 115/68
--- NOTE | 2018-01-23 17:09 | CARD ---
MR#: [id number] Date of Study: 01/23/2018 Ordering Physician: CECY CARCAMO, Referring Physician: Babatunde MARTINEZ: Marcela Spears APPROVED REPORT EXAM: Two-dimensional and M-mode echocardiogram with Doppler and color Doppler. Other Information Quality : AverageHR: 102bpm INDICATION Palpitations 2D DIMENSIONS RVDd2.2 (2.9-3.5cm)Left Atrium(2D)2.5 (1.6-4.0cm) IVSd0.8 (0.7-1.1cm)Aortic Root(2D)3.1 (2.0-3.7cm) LVDd4.1 (3.9-5.9cm)LVOT Diameter1.9 (1.8-2.4cm) PWd0.9 (0.7-1.1cm)LVDs2.1 (2.5-4.0cm) FS (%) 48.2 %SV59.2 ml Aortic Valve AoV Peak Leonardo.183.8cm/sAoV VTI21.6cm AO Peak GR.13.5mmHgLVOT Peak Leonardo.153.8cm/s AO Mean GR.9mmHgAVA (VMAX)2.36cm2 Mitral Valve MV E Jkaymjao70.9cm/sMV DECEL HFVU862gv MV A Bfgxstro773.0cm/sE/A Ratio0.6 Tricuspid Valve TR P. Ezrvswoh973dd/sRAP PPYJRXTI4mmRq TR Peak Gr.42qaFuHXJY22xfUs LEFT VENTRICLE The left ventricle is normal size. There is normal left ventricular wall thickness. The Ejection Frac tion is 65-70%.The left ventricle is hyperdynamic. There is normal LV segmental wall motion. Transmit ral Doppler flow pattern is Grade I-abnormal relaxation pattern. RIGHT VENTRICLE The right ventricle is normal size. There is normal right ventricular wall thickness. The right ventr icular systolic function is normal. ATRIA The left atrium size is normal. The right atrium size is normal. The interatrial septum is intact wit h no evidence for an atrial septal defect or patent foramen ovale as noted on 2-D or Doppler imaging. AORTIC VALVE The aortic valve is normal in structure and function. Doppler and Color Flow revealed no significant aortic regurgitation. There is no significant aortic valvular stenosis. MITRAL VALVE The mitral valve is normal in structure and function. There is no mitral valve stenosis. Doppler and Color-flow revealed trace mitral regurgitation. TRICUSPID VALVE The tricuspid valve is normal in structure and function. Doppler and Color Flow revealed trace tricus pid regurgitation. Estimated PAP 27 mmHg. There is no tricuspid valve stenosis. PULMONIC VALVE Doppler and Color Flow revealed no pulmonic valvular regurgitation. There is no pulmonic valvular char nosis. GREAT VESSELS The aortic root is normal in size. The IVC is normal in size and collapses >50% with inspiration. PERICARDIAL EFFUSION There is no evidence of significant pericardial effusion. Critical Notification Critical Value: No <Conclusion> The left ventricle is normal size. The Ejection Fraction is 65-70%.The left ventricle is hyperdynamic. There is no significant aortic valvular stenosis. Doppler and Color Flow revealed no significant aortic regurgitation. Doppler and Color-flow revealed trace mitral regurgitation. Doppler and Color Flow revealed trace tricuspid regurgitation. Estimated PAP 27 mmHg. Signed by : Reed Batres MD Electronically Approved : 01/23/2018 17:08:36
[2018-01-23 19:00] VITALS: BP 149/87
--- NOTE | 2018-01-23 19:26 | PDOC ---
PULMONARY PROGRESS NOTES Vitals Vital Signs Date Time Temp Pulse Resp B/P (MAP) Pulse Ox O2 Delivery O2 Flow Rate FiO2 01/23/18 15:23 95 Nasal Cannula 2.0 01/23/18 14:55 97.9 89 20 115/68 (84) 97.9 Lungs: Wheezing, Other (coughing in between phrases, decreased breath sounds on bases) Labs Laboratory Tests Test 01/22/18 12:45 01/22/18 13:35 01/22/18 17:15 01/22/18 20:15 White Blood Count 10.7 x10^3/uL (4.0-11.0) Red Blood Count 5.04 x10^6/uL (3.50-5.40) Hemoglobin 15.4 g/dL (12.0-15.5) Hematocrit 44.3 % (36.0-47.0) Mean Corpuscular Volume 88 fL (79-100) Mean Corpuscular Hemoglobin 31 pg (25-35) Mean Corpuscular Hemoglobin Concent 35 g/dL (31-37) Red Cell Distribution Width 13.2 % (11.5-14.5) Platelet Count 365 x10^3/uL (140-400) Neutrophils (%) (Auto) 56 % (31-73) Lymphocytes (%) (Auto) 33 % (24-48) Monocytes (%) (Auto) 9 % (0-9) Eosinophils (%) (Auto) 2 % (0-3) Basophils (%) (Auto) 1 % (0-3) Neutrophils # (Auto) 6.0 x10^3uL (1.8-7.7) Lymphocytes # (Auto) 3.5 x10^3/uL (1.0-4.8) Monocytes # (Auto) 1.0 x10^3/uL (0.0-1.1) Eosinophils # (Auto) 0.2 x10^3/uL (0.0-0.7) Basophils # (Auto) 0.1 x10^3/uL (0.0-0.2) Sodium Level 135 mmol/L (136-145) Potassium Level 3.7 mmol/L (3.5-5.1) Chloride Level 98 mmol/L (98-107) Carbon Dioxide Level 29 mmol/L (21-32) Anion Gap 8 (6-14) Blood Urea Nitrogen 24 mg/dL (7-20) Creatinine 0.6 mg/dL (0.6-1.0) Estimated GFR (Cockcroft-Gault) 104.2 BUN/Creatinine Ratio 40 (6-20) Glucose Level 127 mg/dL (70-99) Calcium Level 10.0 mg/dL (8.5-10.1) Magnesium Level 1.2 mg/dL (1.8-2.4) Total Bilirubin 0.2 mg/dL (0.2-1.0) Aspartate Amino Transf (AST/SGOT) 21 U/L (15-37) Alanine Aminotransferase (ALT/SGPT) 38 U/L (14-59) Alkaline Phosphatase 95 U/L (46-116) Creatine Kinase 80 U/L (26-192) Creatine Kinase MB (Mass) 0.8 ng/mL (0.0-3.6) Creatine Kinase MB Relative Index 1.0 % (0-4) Troponin I Quantitative < 0.017 ng/mL (0.000-0.055) < 0.017 ng/mL (0.000-0.055) < 0.017 ng/mL (0.000-0.055) RO-Sgv-P-Type Natriuretic Peptide 135 pg/mL (0-124) Total Protein 8.0 g/dL (6.4-8.2) Albumin 4.2 g/dL (3.4-5.0) Albumin/Globulin Ratio 1.1 (1.0-1.7) Thyroid Stimulating Hormone (TSH) 1.681 uIU/mL (0.358-3.74) Free Thyroxine 0.98 ng/dL (0.76-1.46) Urine Opiates Screen Neg (NEG) Urine Methadone Screen Neg (NEG) Urine Barbiturates Neg (NEG) Urine Phencyclidine Screen Neg (NEG) Urine Amphetamine/Methamphetamine Neg (NEG) Urine Benzodiazepines Screen Neg (NEG) Urine Cocaine Screen Neg (NEG) Urine Cannabinoids Screen Neg (NEG) Urine Ethyl Alcohol Neg (NEG) Laboratory Tests Test 01/22/18 20:15 Troponin I Quantitative < 0.017 ng/mL (0.000-0.055) Medications Active Scripts Medications Dose Route/Sig Max Daily Dose Days Date Category Ipratropium [place] 0.2 Mg/1 Ml Solution 1 Vial NEB QID 01/22/18 Reported Proair Hfa Inhaler (Albuterol Sulfate) 8.5 Gm Hfa.aer.ad 1 Puff INH PRN Q6HRS PRN 01/22/18 Reported Symbicort 160-4.5 Mcg Inhaler (Budesonide/Formoterol Fumarate) 10.2 Gm Hfa.aer.ad 2 Puff IH BID 01/22/18 Reported Impression . AECOPD PALPITATIONS PULMONARY NODULES OK TO D/C FOLLOW UP IN OFFICE THANKS BRAYDEN MCMILLAN MD Jan 23, 2018 19:26
--- NOTE | 2018-01-24 02:10 | CONS ---
DATE OF CONSULTATION: 01/23/2018 ATTENDING PHYSICIAN: Dr. Mackenzie Mary. REASON FOR CONSULTATION: The patient is seen in pulmonary consultation at the request of Dr. Edwards for increasing shortness of breath, COPD exacerbation. HISTORY OF PRESENT ILLNESS: The patient is a 52-year-old female with a prior history of arrhythmia, presented because of a rapid heart rate, palpitations, chest discomfort and cough. She has also been more short of breath. She states that she continues to smoke, but she has also had some exposure to some recent road work done near her house, there was lots of dust. PAST MEDICAL HISTORY: 1. COPD. 2. Tobacco dependence. 3. Previous pulmonary nodules, follows Dr. Garcia in the office. 4. Arrhythmias. ALLERGIES: No known drug allergies. FAMILY HISTORY: Diabetes. SOCIAL HISTORY: She continues to smoke, occasional alcohol intake. CURRENT MEDICATIONS: List was reviewed. REVIEW OF SYSTEMS: CONSTITUTIONAL: No fever or chills. EYES: No change in visual acuity. HEENT: No nasal congestion or sore throat. PULMONARY: As indicated above. CARDIOVASCULAR: As indicated above. GASTROINTESTINAL: No nausea, vomiting, or diarrhea. GENITOURINARY: No dysuria or frequency. MUSCULOSKELETAL: Denies any muscle aches or joint pains. SKIN: No new skin rashes. NEUROLOGIC: No headaches, diplopia or blurred vision. PHYSICAL EXAMINATION: GENERAL: The patient was feeling better. She was off oxygen. VITAL SIGNS: O2 saturation was greater than 92%. HEENT: Eyes, the sclerae were nonicteric. NECK: Jugular venous distention was not elevated. No lymphadenopathy. CHEST: Full expansion. LUNGS: Adequate airway flow, no wheezes. CARDIOVASCULAR: Regular rate and rhythm with S1, S2, no S3. ABDOMEN: Soft, nontender, nondistended. EXTREMITIES: No clubbing, cyanosis or edema. NEUROLOGIC: The patient was awake, alert, following commands. A detailed neuro exam was not performed. LABORATORY DATA: Reviewed. White count was normal. Hemoglobin and hematocrit were normal. Toxicology screen was negative. Chest x-ray reviewed, no acute infiltrates. IMPRESSION: 1. Palpitations. 2. Acute exacerbation of chronic obstructive pulmonary disease. 3. Tobacco dependence. 4. Pulmonary nodules. 5. Hypertension. PLAN: 1. The patient feels better. I recommend discharge home on taper prednisone and antibiotics. 2. Follow up in the office with repeat CT chest. 3. Follow Cardiology input. 4. The patient instructed on the importance of discontinuing tobacco use. I do appreciate the privilege in sharing this patient's care. BRAYDEN MCMILLAN MD DR: MARIXA/emelyn JOB#: [id number] / [id number]
--- NOTE | 2018-01-24 10:47 | PDOC3 ---
Discharge Summary Date of Admission: Jan 22, 2018 Date of Discharge: Jan 23, 2018 Follow-Up: 3-5 days Admitting Diagnosis comment: discharge diagnosis Chief Complaint Tachyarrhythmia secondary to COPD exacerbation COPD Smoker Stable subcentimeter pulmonary nodule Acute bronchitis SIRS POA No PE History of Present Illness History of Present Illness Coughing , tachyarrhythmia seems to be better with pulmonary treatment Cardio and pulmonary consulted Appreciate, sonoscope operator seen, for echocardiogram-we'll did not tolerate an MPI given lung status Still continues to smoke Chest x-ray basically shows COPD findings PLAN: Echo Add some nebs and scheduled cough med Darrick patch Smoking cessation counselling done today 1;1 Await pulmo rounds [facility]rotive prison meds I have reconciled FINAL DIAGNOSIS Problems Medical Problems: (1) Abnormal EKG Status: Acute (2) Chest pain Status: Acute (3) Palpitations Status: Acute Brief Hospital Course Ms. Huynh is a 52 old [sex] who presented with [ copd exac] CONDITION AT DISCHARGE: Improved Discharge Medications Current Medications Aspirin (Children'S Aspirin) 324 mg 1X ONCE PO ; Start 01/22/18 at 13:00; Stop 01/22/18 at 13:01; Status DC Labetalol HCl (Normodyne Iv Push) 20 mg 1X ONCE IVP Last administered on at 13:15; Start 01/22/18 at 13:00; Stop 01/22/18 at 13:01; Status DC Azithromycin (Zithromax) 500 mg 1X ONCE PO Last administered on 01/22/18at 17: 59; Start 01/22/18 at 17:30; Stop 01/22/18 at 17:31; Status DC Azithromycin (Zithromax) 250 mg DAILY PO Last administered on 01/23/18at 08:58; Start 01/23/18 at 09:00; Stop 01/23/18 at 20:19; Status DC Ipratropium [place] (Atrovent) 1 mg RTQID NEB ; Start 01/22/18 at 20:00; Stop at 20:00; Status DC Albuterol Sulfate (Ventolin Neb Soln) 2.5 mg PRN Q6HRS PRN NEB SHORTNESS OF BREATH; Start 01/22/18 at 17:15; Stop 01/23/18 at 20:19; Status DC Budesonide (Pulmicort) 0.5 mg RTBID NEB Last administered on 01/23/18at 19:52; Start 01/22/18 at 20:00; Stop 01/23/18 at 20:19; Status DC Guaifenesin (MUCINEX ER with DM) 1 tab BID PO Last administered on 01/23/18at 08 :58; Start 01/22/18 at 21:00; Stop 01/23/18 at 20:19; Status DC Methylprednisolone Sodium Succinate (SOLU-Medrol 40MG VIAL) 30 mg DAILY IV Last administered on 01/23/18at 08:58; Start 01/22/18 at 20:00; Stop 01/23/18 at 20:19; Status DC Albuterol/ Ipratropium (Duoneb) 3 ml RTQID NEB Last administered on 01/23/18at 19:52; Start 01/22/18 at 20:00; Stop 01/23/18 at 20:19; Status DC Promethazine HCl/ Codeine (Phenergan With Codeine) 5 ml PRN Q4HRS PRN PO COUGH Last administered on 01/23/18at 06:24; Start 01/23/18 at 06:15; Stop 01/23/18 at 20:19; Status DC Ondansetron HCl (Zofran) 4 mg PRN Q6HRS PRN IV NAUSEA/VOMITING; Start 01/23/18 at 09:00; Stop 01/23/18 at 20:19; Status DC Ondansetron HCl (Zofran Odt) 4 mg PRN Q6HRS PRN PO NAUSEA/VOMITING; Start 01/23 at 09:00; Stop 01/23/18 at 20:19; Status DC Acetaminophen (Tylenol) 500 mg PRN Q6HRS PRN PO HEADACHE / TEMP; Start at 09:00; Stop 01/23/18 at 20:19; Status DC Acetaminophen/ Codeine Phosphate (Tylenol #3) 1 tab PRN Q6HRS PRN PO PAIN MILD ; Start 01/23/18 at 09:00; Stop 01/23/18 at 20:19; Status DC Ibuprofen (Motrin) 400 mg PRN Q6HRS PRN PO INFLAMMATION; Start 01/23/18 at 09: 00; Stop 01/23/18 at 20:19; Status DC Magnesium Sulfate/ Dextrose 100 ml @ 25 mls/hr 1X ONCE IV Last administered on 01/23/18at 10:04; Start 01/23/18 at 10:00; Stop 01/23/18 at 13:59; Status DC Nicotine (Nicoderm Cq 21mg) 1 patch PRN DAILY PRN TD SMOKING CESSATION; Start 01/23/18 at 10:30; Stop 01/23/18 at 20:19; Status DC Active Scripts Active Reported Ipratropium [place] 0.2 Mg/1 Ml Solution 1 Vial NEB QID Proair Hfa Inhaler (Albuterol Sulfate) 8.5 Gm Hfa.aer.ad 1 Puff INH PRN Q6HRS PRN Symbicort 160-4.5 Mcg Inhaler (Budesonide/Formoterol Fumarate) 10.2 Gm Hfa.aer.ad 2 Puff IH BID Vital Signs Vital Signs Date Time Temp Pulse Resp B/P (MAP) Pulse Ox O2 Delivery O2 Flow Rate FiO2 01/23/18 19:57 Nasal Cannula 2.0 01/23/18 19:00 97.7 100 20 149/87 (107) 94 97.7 Labs Laboratory Tests Test 01/22/18 12:45 01/22/18 13:35 01/22/18 17:15 01/22/18 20:15 White Blood Count 10.7 x10^3/uL (4.0-11.0) Red Blood Count 5.04 x10^6/uL (3.50-5.40) Hemoglobin 15.4 g/dL (12.0-15.5) Hematocrit 44.3 % (36.0-47.0) Mean Corpuscular Volume 88 fL (79-100) Mean Corpuscular Hemoglobin 31 pg (25-35) Mean Corpuscular Hemoglobin Concent 35 g/dL (31-37) Red Cell Distribution Width 13.2 % (11.5-14.5) Platelet Count 365 x10^3/uL (140-400) Neutrophils (%) (Auto) 56 % (31-73) Lymphocytes (%) (Auto) 33 % (24-48) Monocytes (%) (Auto) 9 % (0-9) Eosinophils (%) (Auto) 2 % (0-3) Basophils (%) (Auto) 1 % (0-3) Neutrophils # (Auto) 6.0 x10^3uL (1.8-7.7) Lymphocytes # (Auto) 3.5 x10^3/uL (1.0-4.8) Monocytes # (Auto) 1.0 x10^3/uL (0.0-1.1) Eosinophils # (Auto) 0.2 x10^3/uL (0.0-0.7) Basophils # (Auto) 0.1 x10^3/uL (0.0-0.2) Sodium Level 135 mmol/L (136-145) Potassium Level 3.7 mmol/L (3.5-5.1) Chloride Level 98 mmol/L (98-107) Carbon Dioxide Level 29 mmol/L (21-32) Anion Gap 8 (6-14) Blood Urea Nitrogen 24 mg/dL (7-20) Creatinine 0.6 mg/dL (0.6-1.0) Estimated GFR (Cockcroft-Gault) 104.2 BUN/Creatinine Ratio 40 (6-20) Glucose Level 127 mg/dL (70-99) Calcium Level 10.0 mg/dL (8.5-10.1) Magnesium Level 1.2 mg/dL (1.8-2.4) Total Bilirubin 0.2 mg/dL (0.2-1.0) Aspartate Amino Transf (AST/SGOT) 21 U/L (15-37) Alanine Aminotransferase (ALT/SGPT) 38 U/L (14-59) Alkaline Phosphatase 95 U/L (46-116) Creatine Kinase 80 U/L (26-192) Creatine Kinase MB (Mass) 0.8 ng/mL (0.0-3.6) Creatine Kinase MB Relative Index 1.0 % (0-4) Troponin I Quantitative < 0.017 ng/mL (0.000-0.055) < 0.017 ng/mL (0.000-0.055) < 0.017 ng/mL (0.000-0.055) WF-Imv-Y-Type Natriuretic Peptide 135 pg/mL (0-124) Total Protein 8.0 g/dL (6.4-8.2) Albumin 4.2 g/dL (3.4-5.0) Albumin/Globulin Ratio 1.1 (1.0-1.7) Thyroid Stimulating Hormone (TSH) 1.681 uIU/mL (0.358-3.74) Free Thyroxine 0.98 ng/dL (0.76-1.46) Urine Opiates Screen Neg (NEG) Urine Methadone Screen Neg (NEG) Urine Barbiturates Neg (NEG) Urine Phencyclidine Screen Neg (NEG) Urine Amphetamine/Methamphetamine Neg (NEG) Urine Benzodiazepines Screen Neg (NEG) Urine Cocaine Screen Neg (NEG) Urine Cannabinoids Screen Neg (NEG) Urine Ethyl Alcohol Neg (NEG) Allergies Allergies Coded Allergies Type Severity Reaction Last Updated Verified No Known Drug Allergies 01/22/18 No Disposition/Orders: D/C to Home LUIS LEONG MD Jan 24, 2018 10:47
--- NOTE | 2018-01-24 10:48 | DISCH ---
DISCHARGE INSTRUCTIONS Condition on Discharge Condition on Discharge: Stable Activity After Discharge Activity Instructions for Disc: No restrictions Lifting Instructions after Dis: No heavy lifting, No pulling or pushing Exercise Instruction after Dis: Walk 10 min, 3 x per day, Progress as tolerated Weight Bearing Status after Di: No restrictions Diet after Discharge Diet after Discharge: Cardiac, Regular Diet Texture: Regular Liquid Texture: Thin Liquid Wound Incision Care Wound/Incision Care: No wound care needed Checks after Discharge Checks after discharge: Check blood press - daily, Check your Temp as needed Contacting the DRJames after DC Call your doctor for: If your condition worsens Follow-Up Follow Up With: Dr. Garcia 1-2 weeks Treatment/Equipment after DC Adaptive Equipment Issued: None LUIS LEONG MD Jan 24, 2018 10:48
[2018-01-24] MEDS ORDERED: PRED50TA PO (10:49)
== END 2018-01-23 20:19 | disposition home or self-care (01) | DRG 191 ==
LOC: ER 12:14 → 5 SOUTH 14:00
PROVIDERS: ADMIT Internal Medicine; ATTEND Internal Medicine
DX: J44.0 Chronic obstructive pulmonary disease with (acute) lower respiratory infection (principal); R65.10 Systemic inflammatory response syndrome (SIRS) of non-infectious origin without acute organ dysfunction; J20.9 Acute bronchitis, unspecified; J44.1 Chronic obstructive pulmonary disease with (acute) exacerbation; F17.210 Nicotine dependence, cigarettes, uncomplicated; K21.9 Gastro-esophageal reflux disease without esophagitis; I10 Essential (primary) hypertension; E83.42 Hypomagnesemia; R94.31 Abnormal electrocardiogram [ECG] [EKG]; R07.89 Other chest pain; R91.1 Solitary pulmonary nodule; Z83.3 Family history of diabetes mellitus; Z82.49 Family history of ischemic heart disease and other diseases of the circulatory system; Z90.710 Acquired absence of both cervix and uterus; Z82.5 Family history of asthma and other chronic lower respiratory diseases; Z82.3 Family history of stroke; Z80.3 Family history of malignant neoplasm of breast; Z71.6 Tobacco abuse counseling
CPT/HCPCS: 36415; 71045; 80053; 80307; 82553; 83735; 83880; 84439; 84443; 84484; 85025; 93005; 93306; 94640; 96374; 99406; J2920; J3475; J3490; J7620; J7626; Q0144; 99285-25; G0479

== ENCOUNTER → 2019-04-19 | Outpatient (CLI) | payer MEDICARE, OTHER ==
[~2019-04-19] MED LIST: ALBU2.5V8 INH; BUDE10.2 IH; IPRA0.2S5 NEB; PRED50TA PO
--- NOTE | 2019-04-19 11:32 | KCIC ---
PQRS Compliance Statement: One or more of the following individualized dose reduction techniques were utilized for this examination: 1. Automated exposure control 2. Adjustment of the mA and/or kV according to patient size 3. Use of iterative reconstruction technique CT chest without contrast 04/19/2019 INDICATION: Lung nodule. COMPARISON: COPD, smoker 50 years. COMPARISON: CT chest 03/31/2017. TECHNIQUE: With low axial CT images of the chest were obtained without intravenous contrast. Coronal and sagittal reformats are provided. FINDINGS: There is mild to moderate centrilobular pulmonary emphysema. There are no pleural effusions. No pulmonary vascular congestion or pneumothorax. Bronchial wall thickening is compatible with bronchitis. There is a 4 mm solid noncalcified pulmonary nodule in the right upper lobe (series 6, image 121) which is not definitively seen on prior examination. There is a calcified granuloma in the left upper lobe measuring 12 mm. Heart size within normal limits. No pericardial effusion. Thoracic aorta is normal in course and caliber. No pathologically enlarged thoracic lymph nodes are identified within the limitations of a noncontrast examination. Visualized portions of the upper abdomen appear stable. No suspicious adrenal nodules. No suspicious osseous normality is identified. IMPRESSION: 1. New 4 mm solid noncalcified pulmonary nodule in the right upper lobe. A six-month follow-up chest CT is recommended to assess stability. Electronically signed by: Chichi Loja MD (04/19/2019 11:29 AM) [id number]
== END | disposition home or self-care (01) ==
LOC: KCIC CT 09:12
PROVIDERS: ATTEND Internal Medicine Pulmonary Disease
DX: J43.2 Centrilobular emphysema (principal); R91.1 Solitary pulmonary nodule; J84.10 Pulmonary fibrosis, unspecified; I10 Essential (primary) hypertension; J40 Bronchitis, not specified as acute or chronic; F17.200 Nicotine dependence, unspecified, uncomplicated
CPT/HCPCS: 71250

== ENCOUNTER → 2020-02-21 | Outpatient (CLI) | payer MEDICARE, OTHER ==
[2019-05-17 15:00] VITALS: BP 131/61
[~2020-02-21] MED LIST changes: +ACET500T68 PO; +BENZ-8 PO; +BUDE10.22 IH; +DOXY100T PO; +LACT1CAP19 PO; +PARO20TA3 PO; +VALS320T2 PO
--- NOTE | 2020-02-21 15:41 | KCIC ---
Examination: CT chest without contrast HISTORY: History of lung nodule, history of smoking, shortness of breath COMPARISON: 04/19/2019 TECHNIQUE: Axial CT images of chest were performed without contrast. Coronal and sagittal reformats performed Exposure: One or more of the following individualized dose reduction techniques were utilized for this examination: 1. Automated exposure control 2. Adjustment of the mA and/or kV according to patient size 3. Use of iterative reconstruction technique FINDINGS: The central airways are patent. Mild cardiomegaly. Coronary artery calcification is identified. No radiologically significant mediastinal lymphadenopathy is identified Severe bilateral lung emphysematous changes. 4 mm nodule identified in the right upper lobe lung similar to prior exam Calcified granuloma identified in the left upper lobe of the lung. The visualized noncontrasted liver, spleen, adrenals grossly appears unremarkable. Moderate degenerative changes thoracic spine. IMPRESSION: 1. Severe bilateral lung emphysematous changes. Unchanged 4 mm nodule right upper lobe of the lung. Electronically signed by: Ariel Riley MD (02/21/2020 3:38 PM) [id number]
== END | disposition home or self-care (01) ==
LOC: KCIC CT 09:30
PROVIDERS: ATTEND Internal Medicine Pulmonary Disease
DX: R91.1 Solitary pulmonary nodule (principal); J43.9 Emphysema, unspecified; I25.10 Atherosclerotic heart disease of native coronary artery without angina pectoris; I51.7 Cardiomegaly; J98.4 Other disorders of lung; J84.10 Pulmonary fibrosis, unspecified; M47.814 Spondylosis without myelopathy or radiculopathy, thoracic region
CPT/HCPCS: 71250

== ENCOUNTER → 2020-06-26 | Outpatient (CLI) | payer MEDICARE, OTHER ==
[2019-05-17 15:00] VITALS: BP 131/61
--- NOTE | 2020-06-26 14:17 | KCIC ---
EXAM: CT CHEST WITHOUT CONTRAST HISTORY: Shortness of breath, lung nodules, smoker over 4 years COMPARISON: CT chest 02/21/2020 04/19/2019 TECHNIQUE: Helical CT of the chest performed without contrast. Coronal and sagittal reformats were o btained. One or more of the following individualized dose reduction techniques were utilized for this examinat ion: 1. Automated exposure control 2. Adjustment of the mA and/or kV according to patient size 3. Use of iterative reconstruction technique. FINDINGS: Thyroid gland and thoracic inlet: Normal. Heart and great vessels: Heart is normal in size. No pericardial effusion. Thoracic aorta is normal c aliber. Mild calcified aortic atherosclerosis. Mediastinum and genet: No lymphadenopathy. Lungs and pleura: A 4 mm pulmonary nodule in the right upper lobe is unchanged (image 115, series 6). A 6 mm pulmonary nodule in the right apex is unchanged (image 47 series 6). A 3 mm pulmonary nodule in the anterior left upper lobe is unchanged (image 118, series 6). Cluster of calcified granulomas i n the left upper lobe are unchanged. There is moderate centrilobular emphysema and airway wall thicke clare. No pleural effusion. Chest wall and axillae: No axillary lymphadenopathy. Breast tissue symmetric. Upper abdomen: Unremarkable. Bones: No acute osseous abnormality. IMPRESSION: 1. There are several unchanged subcentimeter pulmonary nodules. These have been stable since at least 04/19/2019. 2. Moderate centrilobular emphysema. Electronically signed by: Ness Gomez MD (06/26/2020 2:14 PM) [id number]
== END ==
LOC: KCIC CT 08:45
PROVIDERS: ATTEND Internal Medicine Pulmonary Disease
DX: J43.2 Centrilobular emphysema (principal); R91.1 Solitary pulmonary nodule; I70.0 Atherosclerosis of aorta
CPT/HCPCS: 71250

== ENCOUNTER → 2021-04-21 | Outpatient (CLI) | payer MEDICARE, OTHER ==
[2019-05-17 15:00] VITALS: BP 131/61
--- NOTE | 2021-04-27 11:23 | SLEEP ---
DATE OF STUDY: 04/21/2021 REFERRING PHYSICIAN: Dr. Nando Saxena. HISTORY OF PRESENT ILLNESS: The patient is 55-year-old who weighs 143 pounds with a BMI of 28. The patient's [place] score was 11. The patient underwent diagnostic sleep study performed at [facility]. During the night of the study, patient spent 520 minutes in bed and slept for 366 minutes with a sleep efficiency of 70%. Sleep latency was 34 minutes with a REM latency of 114 minutes. Sleep architecture showed increased stage 1 and stage 2 sleep, reduced slow wave and reduced REM sleep. During the night study, the patient had 66 obstructive apneas, no mixed apneas, 2 central apneas and 13 hypopneas. The patient's AHI was 13 per hour. Supine sleep was not seen. REM AHI of 22 per hour. Nocturnal oximetry study revealed mean oxygen saturation of 85% with a lowest of 61%. 37 minutes were spent with oxygen saturation between 80% and 89% and 53 minutes with saturation between 70% and 79%. PLMs were seen at index of 149 per hour and 10 per hour caused EEG arousals. There was not enough time to initiate CPAP as most of the events occurred during the later part of the night. IMPRESSION: 1. Mild obstructive sleep apnea with moderate increase during REM sleep. Total AHI 13 per hour with a REM AHI of 22 per hour. 2. Nocturnal hypoxia secondary to combination of obstructive sleep apnea and suspected hypoventilation. 3. Severe PLMs. RECOMMENDATIONS: 1. The patient will benefit from return to the sleep lab for CPAP titration study. 2. Once the patient is optimally treated with CPAP, then follow up in 4-6 weeks to assess compliance and to document clinical improvement. 3. The patient may need supplemental oxygen. 4. 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 5. Cautioned regarding driving until symptoms of sleep apnea resolve with above recommendations. 6. Patient has severe PLM, Please evaluate for restless legs symptoms during the day. ALDO DR: Wolfgang TID: [id number] CC: NANDO SAXENA MD [facility]
== END ==
LOC: SLPLAB 19:04
PROVIDERS: ATTEND Internal Medicine Pulmonary Disease
DX: G47.33 Obstructive sleep apnea (adult) (pediatric) (principal); G47.34 Idiopathic sleep related nonobstructive alveolar hypoventilation; G47.61 Periodic limb movement disorder; R06.83 Snoring
CPT/HCPCS: 95810

== ENCOUNTER → 2021-05-24 | Outpatient (CLI) | payer MEDICARE, MEDICAID ==
[2019-05-17 15:00] VITALS: BP 131/61
--- NOTE | 2021-05-25 15:02 | SLEEP ---
DATE OF STUDY: 05/24/2021 SLEEP STUDY REFERRING PHYSICIAN: Nando Saxena MD. The patient is a 56-year-old who weighs 145 pounds with a BMI of 28. The patient's North score was 13. The patient had a previous sleep study and was found to have mild GERARDO with moderate increase during REM sleep. Total AHI 13 per hour with a REM AHI of 22 per hour. The patient also has severe PLMs. The patient was clinically symptomatic. As a result, she was referred for CPAP titration study. During the night study, the patient spent 509 minutes in bed and slept for 472 minutes with a normal sleep efficiency of 93%. Sleep latency was 18 minutes with a REM latency of 101 minutes. Sleep architecture showed normal stage 1 and stage 2 sleep, normal slow wave and increased REM sleep, which was 36% of total sleep time. EKG monitoring revealed an average heart rate of 78 beats per minute. No sustained arrhythmias observed. PLMs were seen at index of 189 per hour and 14 per hour caused EEG arousals. The patient was started on CPAP at a pressure of 5 cm water and titrated up to 15 cm water. The patient was then switched to BiPAP at a pressure of 21/17. At this pressure, the patient slept for 51 minutes. The patient had a lateral REM sleep. The patient's AHI was 8.2 per hour. The patient had some central apneas. The patient also required 2 liters of oxygen due to low saturations, which remained in the low 80s. The patient also did reasonably well at a CPAP pressure of 13 cm water. At that pressure, the patient slept for 157 minutes. The patient's AHI was reduced to 6.9 per hour. The patient had a lateral REM sleep. Oxygen saturations still remained in the lower 80s. IMPRESSION: 1. Sleep apnea diagnosed by previous sleep study. 2. Nocturnal hypoxia secondary to combination of sleep apnea and suspected hypoventilation.Rule out any cardiac or pulmonary conditions. 3. Severe periodic limb movements at an index of 189 per hour and 14 per hour caused EEG arousals. RECOMMENDATIONS: 1. CPAP at a pressure of 13 cm water should be tried first. The patient did reasonably well at this pressure. The patient would require supplemental oxygen 2 liters at the current pressure. 2. The patient should have a followup in 4-6 weeks to assess compliance with CPAP and to document clinical improvement. I would recommend review of the download data. If the AHI remains more than 10 per hour, then the patient can be tried on BiPAP at a pressure of 21/17. 3. The patient should also be further evaluated for symptoms of restless legs during the day. The patient was found to have severe PLMs. 4. 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 5. Weight loss to ideal body weight is recommended. 6. Cautioned regarding driving until symptoms of sleep apnea resolve with above recommendations. DWAINE DR: Wolfgang TID: [id number] CC: NANDO SAXENA MD MTDD
== END ==
LOC: RT 19:11
PROVIDERS: ATTEND Internal Medicine Pulmonary Disease
DX: G47.33 Obstructive sleep apnea (adult) (pediatric) (principal); G47.34 Idiopathic sleep related nonobstructive alveolar hypoventilation; G47.61 Periodic limb movement disorder
CPT/HCPCS: 95811